=== PATIENT | male | born 1990 | race American Indian/Alaskan Native ===

== ENCOUNTER 2017-08-11 13:06 | Emergency (ER) | payer OTHER ==
[2017-08-11 13:33] VITALS: RESP 18
--- NOTE | 2017-08-11 15:11 | RAD ---
PROCEDURE: Left Foot Radiographs. HISTORY: foot pain x many years COMPARISON: None. FINDINGS: BONES: Bone alignment and mineralization are normal. There is no acute displaced fracture or bone destruction. There is a small plantar calcaneal spur. There is a prominent dorsal calcaneal enthesophyte. JOINTS: Normal. SOFT TISSUES: Normal. OTHER FINDINGS: None. IMPRESSION: No acute fracture, dislocation or bone destruction.
--- NOTE | 2017-08-11 15:52 | C.PDOC ---
History Of Present Illness 27 y/o male presents to the ER for evaluation of chronic left hand and left foot pain which has been present on/off for the past several years and has become worse over the past 1 week. Therefore ,patient decided to visit the ER. Patient denies having any falls, injuries, weakness, and numbness. Time Seen by Provider: 08/11/17 13:55 Chief Complaint (Nursing): Lower Extremity Problem/Injury History Per: Patient History/Exam Limitations: no limitations Onset/Duration Of Symptoms: Days Current Symptoms Are (Timing): Still Present Severity: Moderate Past Medical History Reviewed: Historical Data, Nursing Documentation, Vital Signs Vital Signs: Last Vital Signs Temp 98.0 F 08/11/17 16:08 Pulse 87 08/11/17 16:08 Resp 18 08/11/17 16:08 BP 135/66 08/11/17 16:08 Pulse Ox 99 08/11/17 16:30 - Medical History PMH: No Chronic Diseases Surgical History: No Surg Hx Family History: States: No Known Family Hx - Social History Hx Alcohol Use: No Hx Substance Use: No - Immunization History Hx Tetanus Toxoid Vaccination: No Hx Influenza Vaccination: No Hx Pneumococcal Vaccination: No Review Of Systems Except As Marked, All Systems Reviewed And Found Negative. Musculoskeletal: Positive for: Hand Pain (left hand pain), Foot Pain (left foot pain) Neurological: Negative for: Weakness, Numbness Physical Exam - Physical Exam Appears: Non-toxic, No Acute Distress Skin: Normal Color, Warm, No Rash Head: Atraumatic, Normacephalic Eye(s): bilateral: Normal Inspection Nose: Normal Oral Mucosa: Moist Neck: Supple Chest: Symmetrical Extremity: No Normal ROM (lmited ROM in left wrist secondary to pain), Tenderness (minimal tenderness to dorsal aspect of left foot), No Deformity, Swelling (minimal swelling to left wrist,) Pulses: Left Radial: Normal, Right Radial: Normal, Left Dorsalis Pedis: Normal, Right Dorsalis Pedis: Normal Neurological/Psych: Oriented x3, Normal Speech, Normal Motor, Normal Sensation Gait: Steady ED Course And Treatment O2 Sat by Pulse Oximetry: 99 (RA) Pulse Ox Interpretation: Normal - Other Rad X-Ray- Left Foot X-Ray: Viewed By Me, Read By Radiologist Interpretation: PROCEDURE: Left Foot Radiographs. HISTORY: foot pain x many years. COMPARISON: None. FINDINGS: BONES: Bone alignment and mineralization are normal. There is no acute displaced fracture or bone destruction. There is a small plantar calcaneal spur. There is a prominent dorsal calcaneal enthesophyte. JOINTS: Normal. SOFT TISSUES: Normal. OTHER FINDINGS: None. IMPRESSION: No acute fracture, dislocation or bone destruction. Medical Decision Making Medical Decision Making: Plan: --Toradol IM --X-Ray- Left Elbow --X-Ray-- Left Wrist Diff/DX: fracture, arthritis, gout, cellulitis. xrays are negative and patient has only mild tenderness on exam. Physical exam has no indication of possible infection. Patient was instructed to follow up with the medical clinic within 1-2 days. Disposition - Disposition Referrals: [facility] [Outside] Disposition: HOME/ ROUTINE Disposition Time: 15:51 Condition: GOOD Additional Instructions: Follow up with the Ortho clinic within 1-2 weeks. Return if worsened. Prescriptions: Ibuprofen [Motrin] 600 mg PO TID #21 tab Instructions: Muscle and Bone Pain (DC) Forms: [employer] (Croatian) - Clinical Impression Clinical Impression: Wrist pain, Foot pain - PA / NEURODIAGNOSTIC TECHNOLOGIST / Resident Statement MD/DO has reviewed & agrees with the documentation as recorded. - Scribe Statement The provider has reviewed the documentation as recorded by the Jose Martin [place] Provider Attestation All medical record entries made by the Yulianaibmichael were at my direction and personally dictated by me. I have reviewed the chart and agree that the record accurately reflects my personal performance of the history, physical exam, medical decision making, and the department course for this patient. I have also personally directed, reviewed, and agree with the discharge instructions and disposition.
[2017-08-11 16:08] VITALS: BP 135/66; PULSE 87; TEMP 98
[2017-08-11 16:24] VITALS: O2SAT 99
--- NOTE | 2017-08-12 13:57 | RAD ---
PROCEDURE: Left Wrist Radiographs. HISTORY: wrist injury yrs ago, pain COMPARISON: None. FINDINGS: BONES: Bone alignment and mineralization are normal. There is no acute displaced fracture or bone destruction. There is negative ulnar variance. JOINTS: The proximal and distal carpal rows are maintained. There is increased distance between the scaphoid and lunate which measures 6 mm. SOFT TISSUES: Normal. OTHER FINDINGS: None. IMPRESSION: No acute displaced fracture or dislocation. Scapholunate dissociation related to old injury. Negative ulnar variance.
== END 2017-08-11 16:09 | disposition home or self-care (01) ==
LOC: C.ER 13:06
DX: M25.532 Pain in left wrist (principal); M79.672 Pain in left foot
CPT/HCPCS: 73110; 73630; 96372; 99283; J1885